=== PATIENT | female | born 1985 | race Two or more races ===

== ENCOUNTER 2020-01-04 19:11 | Emergency (ER) | payer MEDICAID ==
[~2020-01-04] VITALS: Ht 160 cm; Wt 50.0 kg
[2020-01-04] MEDS ORDERED: SODIUM CHLORIDE 0.9% 1,000 ML IV ONE (19:36)
[2020-01-04] MEDS ORDERED: TETANUS, DIPHTHERIA, PERTUSSIS VAC/PF 0.5ML (>7YR OLD) IM ONE (19:45)
[2020-01-04 20:03] LABS: BASOPHILS % 0.3 % (0.0-2.0); EOSINOPHILS % 0.1 % (0.0-5.0); HEMATOCRIT. 35.4 % (36.0-48.0); HEMOGLOBIN. 11.9 g/dL (12.0-16.0); LYMPHOCYTES % 18.7 % (20.0-50.0); MEAN CORPUSCULAR HEMOGLOBIN 29.5 pg (28.0-32.0); MEAN CORPUSCULAR VOLUME 88.1 fL (81.0-99.0); MEAN PLATELET VOLUME 6.8 fl (7.4-10.4); MONOCYTES % 6.9 % (2.0-8.0); PLATELET 413 x1000/uL (130-400); RED BLOOD CELL COUNT 4.02 mill/uL (4.2-5.4); RED CELL DISTRIBUTION WIDTH 17.1 % (11.6-14.6)
[2020-01-04 20:07] LABS: CHLORIDE 105 mEq/L (98-107)
[2020-01-04 20:08] LABS: HCG SCREEN NEGATIVE
[2020-01-04 20:09] LABS: INR 0.9; PROTHROMBIN TIME 10.3 sec (9.6-11.0)
[2020-01-04 20:12] LABS: ETHANOL BLOOD 40 mg/dL
[2020-01-04] MEDS ORDERED: LIDOCAINE 1%/EPI 1:100,000 10 ML VIAL IJ ONE (20:30)
[2020-01-04] MEDS ORDERED: BACITRACIN ZINC OINT UDPKT TOP ONE (20:30)
[2020-01-04] MEDS ORDERED: LIDOCAINE HCL/EPINEPHRINE 1%-EPI 1:100,000 20 ML VIAL INFIL NR (20:33)
[2020-01-04] MEDS ORDERED: ONDANSETRON HCL 4MG/2ML INJ IV STA (20:53)
[2020-01-04] MEDS ORDERED: MORPHINE SULFATE 4 MG/ML CPJ (NOT FOR IM USE) IV STA (20:53)
[2020-01-04] MEDS ORDERED: ACETAMINOPHEN 325MG TABLET ONE (20:55)
[2020-01-04 21:54] LABS: *AMPHETAMINES SCREEN URINE NEGATIVE (NEGATIVE); *BARBITURATES SCREEN URINE NEGATIVE (NEGATIVE); *BENZODIAZEPINES SCREEN URINE NEGATIVE (NEGATIVE)
[2020-01-04 21:55] LABS: *COCAINE SCREEN URINE NEGATIVE (NEGATIVE); CANNABINOID URINE SCREEN NEGATIVE (NEGATIVE); METHADONE URINE SCREEN NEGATIVE (NEGATIVE); OPIATES URINE SCREEN NEGATIVE (NEGATIVE); PHENCYCLIDINE URINE SCREEN NEGATIVE (NEGATIVE)
[2020-01-04 22:36] VITALS: BP 135/80
== END 2020-01-04 22:39 | disposition home or self-care (01) ==
LOC: ER 19:11
DX: S01.81XA Laceration without foreign body of other part of head, initial encounter (principal); S01.21XA Laceration without foreign body of nose, initial encounter; F41.9 Anxiety disorder, unspecified; F12.10 Cannabis abuse, uncomplicated; D64.9 Anemia, unspecified; W01.198A Fall on same level from slipping, tripping and stumbling with subsequent striking against other object, initial encounter; Y93.89 Activity, other specified; Y92.488 Other paved roadways as the place of occurrence of the external cause
CPT/HCPCS: 36415; 70450; 71045; 72125; 80053; 80305; 80320; 84484; 84703; 85025; 85610; 90471; 90715; 93005; 96361; 96374; 99285; J2270; J2405; J3490; J7030; L0172; G0480